=== PATIENT | female | born 1930 | race Two or more races ===

== ENCOUNTER 2020-08-27 08:45 | Outpatient (CLI) | payer MEDICARE | END 2020-08-27 23:59 | disposition home or self-care (01) | LOC: MSC 08:45 | PROVIDERS: ATTEND Internal Medicine | DX: G30.9 Alzheimer's disease, unspecified (principal); F02.80 Dementia in other diseases classified elsewhere, unspecified severity, without behavioral disturbance, psychotic disturbance, mood disturbance, and anxiety; Z79.899 Other long term (current) drug therapy; R32 Unspecified urinary incontinence; I49.5 Sick sinus syndrome; R00.1 Bradycardia, unspecified; E03.9 Hypothyroidism, unspecified; M81.0 Age-related osteoporosis without current pathological fracture; M19.90 Unspecified osteoarthritis, unspecified site; F32.9 Major depressive disorder, single episode, unspecified; I10 Essential (primary) hypertension; R26.9 Unspecified abnormalities of gait and mobility; H26.9 Unspecified cataract; I83.819 Varicose veins of unspecified lower extremity with pain ==

== ENCOUNTER 2020-10-06 15:30 | Outpatient (CLI) | payer MEDICARE | END 2020-10-06 23:59 | disposition home or self-care (01) | LOC: MSC 15:30 | PROVIDERS: ATTEND Internal Medicine | DX: G30.9 Alzheimer's disease, unspecified (principal); F02.80 Dementia in other diseases classified elsewhere, unspecified severity, without behavioral disturbance, psychotic disturbance, mood disturbance, and anxiety; R32 Unspecified urinary incontinence; I10 Essential (primary) hypertension; Z86.79 Personal history of other diseases of the circulatory system; E03.9 Hypothyroidism, unspecified; M81.0 Age-related osteoporosis without current pathological fracture; M19.90 Unspecified osteoarthritis, unspecified site; R26.89 Other abnormalities of gait and mobility; Z79.899 Other long term (current) drug therapy ==

== ENCOUNTER 2020-11-05 09:30 | Outpatient (CLI) | payer MEDICARE | END 2020-11-05 23:59 | disposition home or self-care (01) | LOC: MSC 09:30 | PROVIDERS: ATTEND Internal Medicine | DX: Z51.89 Encounter for other specified aftercare (principal); G30.9 Alzheimer's disease, unspecified; F02.80 Dementia in other diseases classified elsewhere, unspecified severity, without behavioral disturbance, psychotic disturbance, mood disturbance, and anxiety; R32 Unspecified urinary incontinence; I10 Essential (primary) hypertension; I49.5 Sick sinus syndrome; E03.9 Hypothyroidism, unspecified; Z79.890 Hormone replacement therapy; M81.0 Age-related osteoporosis without current pathological fracture; M19.90 Unspecified osteoarthritis, unspecified site; F32.9 Major depressive disorder, single episode, unspecified; Z79.899 Other long term (current) drug therapy ==

== ENCOUNTER 2021-06-23 10:20 | Outpatient (CLI) | payer MEDICARE ==
[2021-06-23 12:52] LABS: HEMATOCRIT 41 % (33-45); HEMOGLOBIN 13.8 g/dL (11.5-14.8); LYMPHOCYTES # (AUTO) 1.2 K/uL (0.8-4.8); LYMPHOCYTES % (AUTO) 28.3 % (20.0-44.0); MEAN CORPUSCULAR HGB CONC 34 g/dl (31.0-36.0); MEAN CORPUSCULAR VOLUME 95 fL (82-100); MONOCYTES # (AUTO) 0.4 K/uL (0.1-1.30); MONOCYTES % (AUTO) 9.1 % (2.0-12.0); NEUTROPHILS # (AUTO) 2.5 K/uL (1.8-8.9); NEUTROPHILS % (AUTO) 59.6 % (43.0-81.0); PLATELET COUNT (AUTO) 201 K/uL (150-450); RED BLOOD CELL COUNT(AUTO) 4.33 MIL/uL (4.0-5.2); WHITE BLOOD COUNT (AUTO) 4.2 K/uL (4.3-11.0)
[2021-06-23 13:23] LABS: IRON, SERUM 47 ug/dl (50-175); TOTAL IRON BINDING CAPACITY 278 ug/dl (250-450)
[2021-06-23 13:32] LABS: CHOLESTEROL 358 mg/dL (<200); FERRITIN 165 ng/mL (8-388); HDL CHOLESTEROL 79 mg/dL (40-60); LDL 228 mg/dL (0-99); TRIGLYCERIDES 103 mg/dL (30-150)
[2021-06-23 13:49] LABS: C-REACTIVE PROTEIN < 0.2 mg/dL (0.0-0.9)
[2021-06-23 13:51] LABS: MAGNESIUM 2.3 mg/dL (1.8-2.4); PHOSPHORUS 2.5 mg/dL (2.5-4.9)
[2021-06-23 14:33] LABS: BILIRUBIN,URINE NEGATIVE (NEGATIVE); COLOR,URINE YELLOW (YELLOW); LEUKOCYTE ESTERASE ,URINE TRACE (NEGATIVE); NITRITE, URINE NEGATIVE (NEGATIVE); PROTEIN,URINE NEGATIVE (NEGATIVE); UGLUCOSE NEGATIVE (NEGATIVE); UROBILINOGEN,URINE 0.2 EU/dL (0.2)
[2021-06-23 14:45] LABS: CREATININE, URINE 128.5 MG/DL (30.0-125.0); URINE TOTAL PROTEIN 18.6 mg/dL (0-11.9)
[2021-06-23 14:52] LABS: BACTERIA,URINE 3+ /HPF (None Seen); RBC,URINE NONE SEEN /HPF (0-2); WBC,URINE 81-100 /HPF (0-3)
[2021-06-23 14:53] LABS: SQUAMOUS EPITHELIAL CELL,UR Moderate /HPF (None Seen)
[2021-06-25 08:38] LABS: ALANINE AMINOTRANSFERASE 48 U/L (12-78); ALKALINE PHOSPHATASE 84 U/L (46-116); ASPARTATE AMINOTRANSFERASE 35 U/L (15-37); BILIRUBIN,TOTAL 0.4 mg/dL (0.2-1.0); CALCIUM, SERUM 9.4 mg/dL (8.5-10.1); CARBON DIOXIDE 19 mmol/L (21-32); CHLORIDE 103 mmol/L (98-107); CREATININE 0.9 mg/dL (0.6-1.3); GLUCOSE 131 mg/dL (74-106); POTASSIUM 4.2 mmol/L (3.5-5.1); SODIUM SERUM 139 mmol/L (136-145); TOTAL PROTEIN, SERUM 7.4 g/dL (6.4-8.2); UREA NITROGEN, BLOOD 12 mg/dL (7-18)
[2021-06-25 13:31] LABS: ALANINE AMINOTRANSFERASE 18 U/L (12-78); ALKALINE PHOSPHATASE 68 U/L (46-116); ASPARTATE AMINOTRANSFERASE 22 U/L (15-37); BILIRUBIN,TOTAL 0.3 mg/dL (0.2-1.0); GLUCOSE 93 mg/dL (74-106)
[2021-06-25 13:32] LABS: CALCIUM, SERUM 9.3 mg/dL (8.5-10.1); CARBON DIOXIDE 29 mmol/L (21-32); CHLORIDE 100 mmol/L (98-107); POTASSIUM 3.3 mmol/L (3.5-5.1); TOTAL PROTEIN, SERUM 7.2 g/dL (6.4-8.2)
[2021-06-25 13:33] LABS: UREA NITROGEN, BLOOD 37 mg/dL (7-18)
[2021-06-25 13:59] LABS: SODIUM SERUM 141 mmol/L (136-145)
== END 2021-06-23 23:59 | disposition home or self-care (01) ==
LOC: MSC 10:20
PROVIDERS: ATTEND Internal Medicine
DX: G30.9 Alzheimer's disease, unspecified (principal); F02.80 Dementia in other diseases classified elsewhere, unspecified severity, without behavioral disturbance, psychotic disturbance, mood disturbance, and anxiety; Z99.3 Dependence on wheelchair; R26.89 Other abnormalities of gait and mobility; R32 Unspecified urinary incontinence; I10 Essential (primary) hypertension; Z86.79 Personal history of other diseases of the circulatory system; E03.9 Hypothyroidism, unspecified; Z79.890 Hormone replacement therapy; M19.90 Unspecified osteoarthritis, unspecified site; M81.0 Age-related osteoporosis without current pathological fracture; F32.9 Major depressive disorder, single episode, unspecified; Z79.2 Long term (current) use of antibiotics; Z79.899 Other long term (current) drug therapy
CPT/HCPCS: 36415; 80061; 81001; 82040; 82043; 82306; 82570 ×2; 82607; 82728; 82746; 83036; 83540; 83735; 84100; 84134; 84155; 84443; 85025; 85652; 86140; 87086; G0463; 80053-TC; 84439-TC

== ENCOUNTER 2021-06-30 14:30 | Outpatient (CLI) | payer MEDICARE | END 2021-06-30 23:59 | disposition home or self-care (01) | LOC: MSC 14:30 | PROVIDERS: ATTEND Internal Medicine | DX: Z51.89 Encounter for other specified aftercare (principal); N39.0 Urinary tract infection, site not specified; G30.9 Alzheimer's disease, unspecified; F02.80 Dementia in other diseases classified elsewhere, unspecified severity, without behavioral disturbance, psychotic disturbance, mood disturbance, and anxiety; R32 Unspecified urinary incontinence; I10 Essential (primary) hypertension; Z86.79 Personal history of other diseases of the circulatory system; E03.9 Hypothyroidism, unspecified; Z79.890 Hormone replacement therapy; M81.0 Age-related osteoporosis without current pathological fracture; M19.90 Unspecified osteoarthritis, unspecified site; R26.89 Other abnormalities of gait and mobility; Z79.899 Other long term (current) drug therapy ==